=== PATIENT | male | born 1990 | race Caucasian/White ===

== ENCOUNTER → 2024-08-18 | Outpatient (CLI) | payer OTHER | LOC: M WUC 10:38 | DX: M25.561 Pain in right knee (principal) ==

== ENCOUNTER → 2025-05-17 | Outpatient (CLI) | payer OTHER ==
[2025-05-17 17:20] LABS: RBC, URINE AUTO 0 /HPF (0-3); WBC, URINE AUTO 0 /HPF (0-3)
== END ==
LOC: M PLALAB 14:41
DX: Z00.8 Encounter for other general examination (principal)